=== PATIENT | female | born 1980 | race Caucasian/White ===

== ENCOUNTER 2019-07-05 08:30 | Emergency (ER) | payer OTHER ==
[~2019-07-05] VITALS: Ht 177.8 cm; Wt 95.5 kg
[2019-07-05 08:37] VITALS: BP 150/103
[2019-07-05] MEDS ORDERED: triamcinolone acetonide 40mg/ml inj IM ONE (08:50)
== END 2019-07-05 09:05 | disposition home or self-care (01) ==
LOC: ER 08:30
DX: J32.9 Chronic sinusitis, unspecified (principal)
CPT/HCPCS: 96372; 99283; J3301